=== PATIENT | male | born 1955 | race Caucasian/White ===

== ENCOUNTER 2017-06-14 04:09 | Emergency (ER) | payer MEDICAID ==
[~2017-06-14] VITALS: Ht 188 cm; Wt 95.5 kg
[~2017-06-14 04:09] MED LIST: AZIT250T13 PO; CLIN-80 PO
[2017-06-14 04:18] VITALS: BP 131/85
[2017-06-14] MEDS ORDERED: IBUP-1985 PO (04:34)
[2017-06-14] MEDS ORDERED: ketorolac trometh. 30mg/ml inj. IM ONE (04:35)
== END 2017-06-14 04:43 | disposition home or self-care (01) ==
LOC: ER 04:10
DX: J06.9 Acute upper respiratory infection, unspecified (principal)
CPT/HCPCS: 96372; 99283; J1885

== ENCOUNTER 2017-08-31 05:05 | Emergency (ER) | payer MEDICAID ==
[~2017-08-31] VITALS: Ht 190.5 cm; Wt 90.9 kg
[~2017-08-31 05:05] MED LIST changes: +IBUP-1985 PO
[2017-08-31 05:51] VITALS: BP 138/90
== END 2017-08-31 05:48 | disposition left against medical advice (07) ==
LOC: ER 05:06
DX: M79.646 Pain in unspecified finger(s) (principal); Z53.21 Procedure and treatment not carried out due to patient leaving prior to being seen by health care provider

== ENCOUNTER 2018-02-02 09:34 | Emergency (ER) | payer MEDICAID ==
[~2018-02-02] VITALS: Ht 188 cm; Wt 79.5 kg
[~2018-02-02 09:34] MED LIST changes: -CLIN-80 PO; +CLIN300C85 PO; +FISH OIL PO; +LITH150C8 PO; +LITH300C PO; +MULTIVITS PO; +VITA-268 PO
[2018-02-02 09:42] VITALS: BP 141/84
== END 2018-02-02 11:40 | disposition home or self-care (01) ==
LOC: ER 09:35
DX: S52.572A Other intraarticular fracture of lower end of left radius, initial encounter for closed fracture (principal); S52.615A Nondisplaced fracture of left ulna styloid process, initial encounter for closed fracture; Z98.890 Other specified postprocedural states; Z79.899 Other long term (current) drug therapy; W23.0XXA Caught, crushed, jammed, or pinched between moving objects, initial encounter; Y93.89 Activity, other specified; Y92.89 Other specified places as the place of occurrence of the external cause; Y99.9 Unspecified external cause status
CPT/HCPCS: 29125; 73110; 99284

== ENCOUNTER 2018-09-14 15:59 | Emergency (ER) | payer MEDICAID ==
[~2018-09-14] VITALS: Ht 190.5 cm; Wt 77.3 kg
[~2018-09-14 15:59] MED LIST changes: +CLIN-96 PO; -CLIN300C85 PO
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
[2018-09-14 18:41] LABS: URINE AMPHETAMINE SCREEN NEGATIVE (Neg); URINE BARBITUATE SCREEN NEGATIVE (Neg); URINE BENZODIAZEPINES SCREEN NEGATIVE (Neg); URINE CANNABINOID SCREEN NEGATIVE (Neg); URINE COCAINE SCREEN NEGATIVE (Neg); URINE METHADONE SCREEN NEGATIVE (Neg); URINE OPIATE SCREEN NEGATIVE (Neg); URINE PHENCYCLIDINE SCREEN NEGATIVE (Neg)
[2018-09-14 18:47] LABS: BASOPHILS # (AUTO) 0.1 X10'3 (0-0.2); BASOPHILS % (AUTO) 0.5 % (0-1); EOSINOPHILS # (AUTO) 0.2 X10'3 (0-0.9); HEMATOCRIT 46.2 % (42.0-52.0); HEMOGLOBIN 15.9 g/dl (14.0-17.9); LYMPHOCYTES # (AUTO) 2.2 X10'3 (1.1-4.8); LYMPHOCYTES % (AUTO) 23.9 % (21-51); MEAN CORPUSCULAR HEMOGLOBIN 31.9 PG (27.0-31.0); MEAN CORPUSCULAR HGB CONC 34.3 g/dL (33.0-36.5); MEAN CORPUSCULAR VOLUME 92.8 FL (78-98); MEAN PLATELET VOLUME 7.4 FL (7.4-10.4); MONOCYTES # (AUTO) 0.6 X10'3 (0-0.9); MONOCYTES % (AUTO) 6.8 % (2-12); NEUTROPHILS # (AUTO) 6.2 X10'3 (1.8-7.7); NEUTROPHILS % (AUTO) 66.8 % (42-75); PLATELET COUNT 261 X10'3 (140-440); RED BLOOD COUNT 4.98 X10'6 (4.70-6.10); RED CELL DISTRIBUTION WIDTH 13.8 % (11.5-14.5); WHITE BLOOD COUNT 9.3 X10'3 (4.5-11.0)
[2018-09-14 19:03] LABS: ALANINE AMINOTRANSFERASE 22 U/L (12-78); ALBUMIN 4.3 G/DL (3.4-5.0); ALBUMIN/GLOBULIN RATIO 1.3 (1.1-1.5); ALKALINE PHOSPHATASE 74 IU/L (46-116); ANION GAP 9 (8-16); ASPARTATE AMINO TRANSFERASE 17 U/L (10-37); BILIRUBIN,TOTAL 1.5 MG/DL (0.1-1.0); BLOOD UREA NITROGEN 18 MG/DL (7-18); BUN/CREATININE RATIO 17.6 (5.4-32.0); CALCIUM 9.8 MG/DL (8.5-10.1); CHLORIDE 105 MMOL/L (99-107); CREATININE 1.02 MG/DL (0.60-1.10); ETHANOL < 0.010 GM/DL (0.0-0.010); GLUCOSE 93 MG/DL (70-104); POTASSIUM 4.6 MMOL/L (3.5-5.1); SODIUM 142 MMOL/L (135-145); TOTAL CARBON DIOXIDE 27.7 MMOL/L (24-32); TOTAL PROTEIN 7.5 G/DL (6.4-8.2); eGFR 74 ML/MIN
--- NOTE | 2018-09-14 20:00 | NUR ---
pt laying in bed quietly, eyes closed. respirations normal.
--- NOTE | 2018-09-14 21:00 | NUR ---
pt laying in bed quietly, eyes closed. respirations normal.
--- NOTE | 2018-09-14 22:12 | NUR ---
Pt asleep on left side. RR 14, even and unlabored. No apparent distress at this time.
--- NOTE | 2018-09-14 23:00 | NUR ---
pt laying in bed quietly, eyes closed. respirations normal.
--- NOTE | 2018-09-15 00:39 | NUR ---
pt laying in bed quietly, eyes closed. respirations normal.
--- NOTE | 2018-09-15 02:14 | NUR ---
pt laying in bed quietly, eyes closed. respirations normal.
--- NOTE | 2018-09-15 03:00 | NUR ---
pt laying in bed quietly, eyes closed. respirations normal.
--- NOTE | 2018-09-15 04:30 | NUR ---
pt laying in bed quietly, eyes closed. respirations normal.
--- NOTE | 2018-09-15 05:34 | NUR ---
pt laying in bed quietly, eyes closed. respirations normal.
--- NOTE | 2018-09-15 06:40 | NUR ---
Patient sleeping on left side. No restlessness observed. Continue to monitor.
--- NOTE | 2018-09-15 08:20 | NUR ---
Patient eating breakfast. No distress observed. Continue to monitor.
--- NOTE | 2018-09-15 10:05 | NUR ---
Patient ambulatory, steady gait to BR. No distress observed. Continue to monitor.
[2018-09-15 11:53] LABS: CLARITY,URINE CLEAR (Clear); COLOR,URINE YELLOW (Yellow); GLUCOSE, URINE NEGATIVE (Neg); KETONES,URINE NEGATIVE (Neg); LEUKOCYTE ESTERASE ,URINE NEGATIVE (Neg); NITRITES, URINE NEGATIVE (Neg); OCCULT BLOOD,URINE NEGATIVE (Neg); PH,URINE 6.5 (4.8-8.0); PROTEIN,URINE NEGATIVE (Neg); UA COLLECTION TYPE CLN CATCH MIDSTREAM; UROBILINOGEN,URINE 0.2 E.U/dL (0.2-1.0)
--- NOTE | 2018-09-15 11:56 | NUR ---
PER MISTY WITH MH, PT DOES NOT NEED TELEPSYCH AT THIS TIME.
--- NOTE | 2018-09-15 11:57 | NUR ---
PT WAS UP TO BATHROOM
--- NOTE | 2018-09-15 12:56 | NUR ---
PT SLEEPING IN BED. NO S/S OF DISTRESS
--- NOTE | 2018-09-15 13:08 | NUR ---
PT IS NOW EATING LUNCH.
--- NOTE | 2018-09-15 14:03 | NUR ---
PT IS SLEEPING, UNLABORED BREATHING, NO S/S OF DISTRESS.
--- NOTE | 2018-09-15 15:50 | NUR ---
PT ASKED TO USE PHONE, WAS POLITE AND APPROPRIATE.
--- NOTE | 2018-09-15 17:18 | NUR ---
Patient sitting up getting his vital signs done. Patient is polite and cooperative. Continue to monitor.
[2018-09-15 20:22] VITALS: BP 112/77
== END 2018-09-15 20:29 ==
LOC: ER 15:59
DX: F32.9 Major depressive disorder, single episode, unspecified (principal); Z98.890 Other specified postprocedural states; Z79.899 Other long term (current) drug therapy
CPT/HCPCS: 36415; 80053; 80305; 80320; 81003; 84443; 85025; 99285